=== PATIENT | male | born 1985 | race African-American/Black ===

== ENCOUNTER 2018-03-12 23:09 | Emergency (ER) | payer SELFPAY | END 2018-03-12 23:51 | disposition home or self-care (01) | LOC: ER 23:51 | DX: S93.401A Sprain of unspecified ligament of right ankle, initial encounter (principal); X50.1XXA Overexertion from prolonged static or awkward postures, initial encounter; Y93.67 Activity, basketball; Y92.89 Other specified places as the place of occurrence of the external cause; Y99.8 Other external cause status | CPT/HCPCS: 73610; 99284 ==

== ENCOUNTER 2018-05-29 22:54 | Emergency (ER) | payer SELFPAY | END 2018-05-30 00:18 | disposition home or self-care (01) | LOC: ER 05-30 00:18 | DX: S02.5XXA Fracture of tooth (traumatic), initial encounter for closed fracture (principal); K04.7 Periapical abscess without sinus; X58.XXXA Exposure to other specified factors, initial encounter; Y93.89 Activity, other specified; Y92.89 Other specified places as the place of occurrence of the external cause; Y99.8 Other external cause status | CPT/HCPCS: 99283 ==

== ENCOUNTER 2019-11-23 08:30 | Emergency (ER) | payer SELFPAY ==
[~2019-11-23] VITALS: Ht 188 cm; Wt 95.4 kg
[~2019-11-23 08:30] MED LIST: AMOX500C PO
[2019-11-23 08:36] VITALS: BP 151/80
[2019-11-23] MEDS ORDERED: HYDR-3164 PO (08:56)
[2019-11-23] MEDS ORDERED: CYCL10TA2 PO (08:56)
[2019-11-23] MEDS ORDERED: NAPR-683 PO (08:56)
[2019-11-23] MEDS ORDERED: PRED50TA PO (08:56)
--- NOTE | 2019-11-23 08:56 | PHYS DOC ---
Past Medical History Past Medical History: No Pertinent History Past Surgical History: No Surgical History Additional Information: 3 cigarettes daily Alcohol Use: None Drug Use: None Adult General Chief Complaint Chief Complaint: LOWER BACK PAIN OR INJURY HPI HPI Patient is a 34 year old patient without history of medical problem who presents with faint of low back pain. Patient complaining of right lower back pain with radiation to back of thigh since yesterday as a constant and sharp pain and rated his pain 10 over 10. Patient denies injury, history of back pain, focal neuro deficit, nausea and vomiting, abdominal pain, urinary and bowel incontinence. Review of Systems Review of Systems Constitutional: Denies fever or chills [] Eyes: Denies change in visual acuity, redness, or eye pain [] HENT: Denies nasal congestion or sore throat [] Respiratory: Denies cough or shortness of breath [] Cardiovascular: No additional information not addressed in HPI [] GI: Denies abdominal pain, nausea, vomiting, bloody stools or diarrhea [] : Denies dysuria or hematuria [] Musculoskeletal: Denies back pain or joint pain [] Integument: Denies rash or skin lesions [] Neurologic: Denies headache, focal weakness or sensory changes [] Endocrine: Denies polyuria or polydipsia [] All other systems were reviewed and found to be within normal limits, except as documented in this note. Current Medications Current Medications Current Medications Medications (Trade) Dose Ordered Sig/[facility] Start Time Stop Time Status Last Admin Dose Admin Acetaminophen/ Hydrocodone Bitart (Lortab 5/325) 1 tab 1X ONCE 11/23/19 08:45 11/23/19 08:52 DC 11/23/19 09:12 1 TAB Cyclobenzaprine HCl (Flexeril) 10 mg 1X ONCE 11/23/19 08:45 11/23/19 08:52 DC 11/23/19 09:11 10 MG Allergies Allergies Allergies Coded Allergies Type Severity Reaction Last Updated Verified No Known Drug Allergies 09/25/14 No Physical Exam Physical Exam Constitutional: Well developed, well nourished, no acute distress, non-toxic appearance. [] HENT: Normocephalic, atraumatic, bilateral external ears normal, oropharynx moist, no oral exudates, nose normal. [] Eyes: PERRLA, EOMI, conjunctiva normal, no discharge. [] Neck: Normal range of motion, no tenderness, supple, no stridor. [] Cardiovascular:Heart rate regular rhythm, no murmur [] Lungs & Thorax: Bilateral breath sounds clear to auscultation [] Abdomen: Bowel sounds normal, soft, no tenderness, no masses, no pulsatile masses. [] Skin: Warm, dry, no erythema, no rash. [] Back: No tenderness, no CVA tenderness. [] Extremities: No tenderness, no cyanosis, no clubbing, ROM intact, no edema. [] Neurologic: Alert and oriented X 3, normal motor function, normal sensory function, no focal deficits noted. [] Psychologic: Affect normal, judgement normal, mood normal. [] Current Patient Data Vital Signs Vital Signs Date Time Temp Pulse Resp B/P (MAP) Pulse Ox O2 Delivery O2 Flow Rate FiO2 11/23/19 09:12 16 Room Air 11/23/19 08:36 98.0 79 151/80 (103) 98 98.0 EKG EKG [] Radiology/Procedures Radiology/Procedures [] Course & Med Decision Making Course & Med Decision Making Pertinent Labs and Imaging studies reviewed. (See chart for details) [] Dragon Disclaimer Dragon Disclaimer This electronic medical record was generated, in whole or in part, using a voice recognition dictation system. Departure Departure Impression: Primary Impression: Sciatica Disposition: 01 HOME, SELF-CARE (at [phone]) Condition: STABLE Referrals: NO PCP (PCP) Patient Instructions: Sciatica Additional Instructions: Drink plenty of liquids Follow-up with your primary care physician in 3-5 days Return to ER if not getting better Apply ice on your back Thank you for visiting [facility] We appreciate you trusting us with your care. If any additional problems come up don't hesitate to return to visit us. Please follow up with your primary care provider so they can plan additional care if needed and know about the problem that you had. If symptoms worsen come back to the Emergency Department. Any concerning symptoms that start such as chest pain, shortness of air, weakness or numbness on one side of the body, running high fevers or any other concerning symptoms return to the ER. Scripts Naproxen (NAPROSYN) 500 Mg Tablet 1 TAB PO BID for pain, #20 TAB Prov: DARVIN MARTINEZ MD 11/23/19 Cyclobenzaprine Hcl (CYCLOBENZAPRINE HCL) 10 Mg Tablet 1 TAB PO TID, #21 TAB Prov: DARVIN MARTINEZ MD 11/23/19 Hydrocodone/Apap 5-325 (NORCO 5-325 TABLET) 1 Each Tablet 1 TAB PO PRN Q6HRS PRN for PAIN, #10 TAB 0 Refills Prov: DARVIN MARTINEZ MD 11/23/19 Prednisone (PREDNISONE) 50 Mg Tablet 1 TAB PO DAILY, #5 TAB Prov: DARVIN MARTINEZ MD 11/23/19 Problem Qualifiers Primary Impression: Sciatica Laterality: right Qualified Codes: M54.31 - Sciatica, right side DARVIN MARTINEZ MD Nov 23, 2019 08:56
[2019-11-23] MEDS: CYCLOBENZAPRINE 10 MG TABLET. PO ONE (09:11)
[2019-11-23] MEDS: HYDROcodone/APAP 5/325MG 1 TAB TABLET PO ONE (09:12)
== END 2019-11-23 09:12 | disposition home or self-care (01) ==
LOC: ER 08:30
DX: M54.41 Lumbago with sciatica, right side (principal); F17.210 Nicotine dependence, cigarettes, uncomplicated; Z79.899 Other long term (current) drug therapy
CPT/HCPCS: 99283